=== PATIENT | female | born 1945 | race Caucasian/White ===

== ENCOUNTER 2023-04-10 02:54 | Emergency (ER) | payer MEDICARE, BC ==
[~2023-04-10] VITALS: Ht 157.5 cm; Wt 46.7 kg
--- NOTE | 2023-04-10 03:20 | NUR ---
Patient ambulated to room #3, informed of plan of care, seen by ER provider. Patient was visiting friend in ER, found out she was COVID positive and decided to check in to be tested. Patient is alert and oriented x4, no s/s of any distress noted, will continue to monitor. COVUD swab done.
[2023-04-10] MEDS ORDERED: RITO100T4 PO (03:57)
[2023-04-10 05:26] VITALS: BP 140/60; O2SAT 97
--- NOTE | 2023-04-10 05:26 | NUR ---
ACI given, remains stable for discharge.
== END 2023-04-10 05:27 | disposition home or self-care (01) ==
LOC: ER 03:12
DX: U07.1 COVID-19 (principal); E78.5 Hyperlipidemia, unspecified; Z79.899 Other long term (current) drug therapy
CPT/HCPCS: A4663